=== PATIENT | female | born 1940 | race African-American/Black ===

== ENCOUNTER 2016-12-10 11:20 | Emergency (ER) | payer MEDICARE, BC ==
[~2016-12-10] VITALS: Ht 162.6 cm; Wt 90.0 kg
[2016-12-10 11:23] VITALS: BP 166/72
[2016-12-10] MEDS ORDERED: AMLO10TA80 PO (11:27)
[2016-12-10] MEDS ORDERED: OLME40TA12 PO (11:27)
[2016-12-10] MEDS ORDERED: ACETAMINOPHEN 500MG TABLET PO ONE (11:45)
== END 2016-12-10 13:54 | disposition home or self-care (01) ==
LOC: ER 11:41
DX: S82.401A Unspecified fracture of shaft of right fibula, initial encounter for closed fracture (principal); I10 Essential (primary) hypertension; Z88.2 Allergy status to sulfonamides; W18.39XA Other fall on same level, initial encounter; Y93.89 Activity, other specified; Y99.9 Unspecified external cause status; Y92.89 Other specified places as the place of occurrence of the external cause
CPT/HCPCS: 29515; 73610; 73630; 99284